=== PATIENT | female | born 1945 | race Caucasian/White ===

== ENCOUNTER 2019-11-19 13:47 | Outpatient (CLI) | payer MEDICARE, OTHER, SELFPAY ==
--- NOTE | 2019-11-21 11:45 | MR_ITS ---
WS: [id number] MRI CERVICAL SPINE HISTORY: Weakness. COMPARISON: None available. Normal cervical alignment with no compression fracture or significant disc space narrowing. Signal within the cervical cord is normal. Visualized posterior fossa is unremarkable. Craniocervical junction, C1 and C2 relationship, odontoid process and soft tissues are normal. C2-C3: Normal. C3-C4: Shallow central disc protrusion. No significant stenosis. C4-C5: Mild osteophytic ridging with a very shallow central disc protrusion. No stenosis. C5-C6: Very tiny central disc protrusion with no stenosis. C6-C7: Small central disc protrusion with no stenosis. C7-T1: Normal. Paraspinal soft tissue are normal.
--- NOTE | 2019-11-21 12:15 | MR_ITS ---
WS: [id number] MRI BRAIN WITHOUT CONTRAST HISTORY: [employer], weakness. COMPARISON: CT head 06/05/2018 TECHNIQUE: Diffusion imaging, multiplanar T1, T2 and FLAIR imaging obtained. No evidence for acute infarct or hemorrhage. Kay-white matter differentiation is normal. No significant atrophy. There are moderate amount of subcortical and periventricular white matter sig nal abnormalities. These are scattered foci of less than 1 cm and probably related to chronic microva scular ischemic disease. No prior large territory infarct. Ventricles and extra-axial spaces are normal. No inferior displacement of cerebellar tonsils. The sella turcica and pituitary gland are unremarkabl e. Posterior fossa is also unremarkable. Dural venous sinuses and [place] of [place] demonstrate no abnormality on this unenhanced studies. Paranasal sinuses: Clear. Mastoid air cells: Normal. Calvarium and scalp: Intact.
== END 2019-11-19 13:48 | disposition home or self-care (01) ==
LOC: RADSHAW 16:49
PROVIDERS: Family Provider Family Medicine; PCP Family Medicine; Referring Provider Family Medicine; Visit Provider Nurse Practitioner
DX: G72.41 Inclusion body myositis [IBM] (principal); R53.1 Weakness; R29.90 Unspecified symptoms and signs involving the nervous system
CPT/HCPCS: 99205; 99999

== ENCOUNTER 2019-11-21 12:56 | Outpatient (CLI) | payer MEDICARE, OTHER, SELFPAY ==
--- NOTE | 2019-11-21 | MR_ITS ---
WS: [id number] MRI CERVICAL SPINE HISTORY: Weakness. COMPARISON: None available. Normal cervical alignment with no compression fracture or significant disc space narrowing. Signal within the cervical cord is normal. Visualized posterior fossa is unremarkable. Craniocervical junction, C1 and C2 relationship, odontoid process and soft tissues are normal. C2-C3: Normal. C3-C4: Shallow central disc protrusion. No significant stenosis. C4-C5: Mild osteophytic ridging with a very shallow central disc protrusion. No stenosis. C5-C6: Very tiny central disc protrusion with no stenosis. C6-C7: Small central disc protrusion with no stenosis. C7-T1: Normal. Paraspinal soft tissue are normal. MR/MR cervical spin wo con* [id number] IMPRESSION: 1. No significant central or foraminal stenosis. 2. No cord atrophy or edema. 3. Very small central disc protrusions from C3-4 to C6-7 without cord contact.
--- NOTE | 2019-11-22 09:15 | MR_ITS ---
NOTE: Report was unsigned for reason: Order was edited. Original Signature date and time was: 11/22/19 0917 WS: [id number] MRI BRAIN WITHOUT CONTRAST HISTORY: [employer], weakness. COMPARISON: CT head 06/05/2018 TECHNIQUE: Diffusion imaging, multiplanar T1, T2 and FLAIR imaging obtained. No evidence for acute infarct or hemorrhage. Kay-white matter differentiation is normal. No significant atrophy. There are moderate amount of subcortical and periventricular white matter signal abnormalities. These are scattered foci of less than 1 cm and probably related to chronic microvascular ischemic disease. No prior large territory infarct. Ventricles and extra-axial spaces are normal. No inferior displacement of cerebellar tonsils. The sella turcica and pituitary gland are unremarkable. Posterior fossa is also unremarkable. Dural venous sinuses and [place] demonstrate no abnormality on this unenhanced studies. Paranasal sinuses: Clear. Mastoid air cells: Normal. Calvarium and scalp: Intact. [facility] MR/MR head wo con* [id number] IMPRESSION: 1. No acute infarct or mass. 2. Moderate chronic microvascular ischemic changes. No infarct or significant atrophy.
== END 2019-11-21 12:57 | disposition home or self-care (01) ==
LOC: RADSHAW 12:58
PROVIDERS: Family Provider Family Medicine; PCP Family Medicine; Visit Provider Nurse Practitioner
DX: G72.41 Inclusion body myositis [IBM] (principal); R53.1 Weakness; M50.223 Other cervical disc displacement at C6-C7 level
CPT/HCPCS: 70551; 72141

== ENCOUNTER 2019-11-26 09:41 | Outpatient (CLI) | payer MEDICARE, OTHER, SELFPAY ==
[2019-11-26 11:55] VITALS: BP 124/72; PULSE 78; TEMP 37.2
[2019-11-26 14:49] LABS: Alanine Aminotransferase 23 U/L (0-33); Albumin Level 3.9 g/dL (3.5-5.2); Alkaline Phosphatase 82 IU/L (35-105); Anion Gap 15.1 (5-19); Blood Urea Nitrogen 25 mg/dL (8-23); Calcium 9.4 mg/dL (8.5-10.5); Carbon Dioxide 24 mmol/L (22-29); Chloride 107 mmol/L (98-107); Creatine Phosphokinase 173 U/L (26-192); Glucose 101 mg/dL (65-115); Osmolality Calculated 291 mOsm/kg (285-295); Potassium 4.1 mmol/L (3.5-5.1); Sodium 142 mmol/L (136-145); Thyroid Stimulating Hormone 1.65 uIU/mL (0.27-4.20); Total Bilirubin 0.3 mg/dL (0.15-1.2); Total Protein 6.9 g/dL (6.6-8.7); Vitamin B12 347 pg/mL (232-1245)
[2019-11-26 19:09] LABS: Aspartate Amino Transferase 28 U/L (0-32)
== END 2019-11-26 09:42 | disposition home or self-care (01) ==
LOC: NSACUTE 09:43
PROVIDERS: Nurse Practitioner; Family Provider Family Medicine; PCP Family Medicine; Visit Provider Specialist
DX: G72.41 Inclusion body myositis [IBM] (principal)
CPT/HCPCS: 80053; 82550; 82607; 84443; 96365; J2930; J7050

== ENCOUNTER 2019-11-27 09:41 | Outpatient (CLI) | payer MEDICARE, OTHER, SELFPAY | END 2019-11-27 09:42 | disposition home or self-care (01) | LOC: NSACUTE 09:44 | PROVIDERS: Family Provider Family Medicine; PCP Family Medicine; Visit Provider Specialist | DX: G72.41 Inclusion body myositis [IBM] (principal) | CPT/HCPCS: 96365; J2930; J7050 ==

== ENCOUNTER 2019-11-28 09:58 | Outpatient (CLI) | payer MEDICARE, OTHER, SELFPAY ==
[2019-11-29 08:16] LABS: PROTEIN, TOTAL 6.2 g/dL (6.1-8.1)
[2019-11-29 11:57] LABS: ALBUMIN 3.9 g/dL (3.8-4.8); ALPHA 1 GLOBULIN 0.2 g/dL (0.2-0.3); ALPHA 2 GLOBULIN 0.6 g/dL (0.5-0.9); BETA 1 GLOBULIN 0.4 g/dL (0.4-0.6); BETA 2 GLOBULIN 0.3 g/dL (0.2-0.5); GAMMA GLOBULIN 0.9 g/dL (0.8-1.7)
[2019-11-29 14:17] LABS: Creatinine, Random Urine 147 mg/dL (20-275); Protein, Total, Random 38 mg/dL (5-24); Protein/Creatinine Ratio 0.259 (0.021-0.161); Protein/Creatinine Ratio 259 mg/g creat (21-161)
[2019-11-30 08:46] LABS: Albumin,Urine Random 100 %; Alpha-1-Globulins Urine Random 0 %; Alpha-2-Globulins Urine Random 0 %; Beta-Globulin,Urine Random 0 %; Gamma Globulin,Urine Random 0 %
== END 2019-11-28 09:59 | disposition home or self-care (01) ==
LOC: NSACUTE 10:00
PROVIDERS: Nurse Practitioner; Family Provider Family Medicine; PCP Family Medicine; Visit Provider Specialist
DX: G72.41 Inclusion body myositis [IBM] (principal)
CPT/HCPCS: 84155; 84165; 96365; J2930; J7050

== ENCOUNTER → 2019-12-13 09:59 | Outpatient (BNVA) | payer MEDICARE, OTHER, SELFPAY | PROVIDERS: Family Provider Family Medicine; PCP Family Medicine; Visit Provider Nurse Practitioner | DX: G72.41 Inclusion body myositis [IBM] (principal) | CPT/HCPCS: 99213; 99999 ==

== ENCOUNTER 2019-12-13 12:06 | Outpatient (CLI) | payer MEDICARE, OTHER, SELFPAY ==
[2019-12-13 12:37] LABS: Basophils % 0.3 %; Eosinophils # 0.1 10^3/uL (0.0-0.8); Hematocrit 43.1 % (37.0-47.0); Hemoglobin 13.9 g/dL (11.5-15.3); Lymphocytes # 0.9 10^3/uL (0.8-4.8); Lymphocytes % 10.3 %; Mean Corpuscular HGB Conc 32.3 g/dL (30.0-36.0); Mean Corpuscular Hemoglobin 29.3 pg (28.0-34.0); Mean Corpuscular Volume 90.7 fL (81-99); Mean Platelet Volume 10.3 fL (7.4-10.4); Monocytes # 0.4 10^3/uL (0.2-0.9); Neutrophils # 7.1 10^3/uL (1.8-7.7); Neutrophils % 82.7 %; Nucleated Red Blood Cells % 0 %; Platelet Count 147 10^3/cmm (130-400); Red Blood Count 4.75 10^6/uL (4.1-5.3); Red Cell Distribution Width 13.2 % (12.1-15.1); White Blood Count 8.6 10^3/uL (4.0-10.0)
[2019-12-13 13:01] LABS: Alanine Aminotransferase 19 U/L (0-33); Albumin Level 4.4 g/dL (3.5-5.2); Alkaline Phosphatase 82 IU/L (35-105); Anion Gap 14.5 (5-19); Aspartate Amino Transferase 19 U/L (0-32); Blood Urea Nitrogen 19 mg/dL (8-23); Calcium 9.3 mg/dL (8.5-10.5); Carbon Dioxide 27 mmol/L (22-29); Chloride 102 mmol/L (98-107); Globulin 1.9 g/dL (1.3-4.6); Glucose 100 mg/dL (65-115); Osmolality Calculated 285 mOsm/kg (285-295); Potassium 4.5 mmol/L (3.5-5.1); Sodium 139 mmol/L (136-145); Total Bilirubin 0.4 mg/dL (0.15-1.2); Total Protein 6.3 g/dL (6.6-8.7)
== END 2019-12-13 12:07 | disposition home or self-care (01) ==
LOC: LAB 12:12
PROVIDERS: PCP Family Medicine; Visit Provider Nurse Practitioner
DX: G72.41 Inclusion body myositis [IBM] (principal)
CPT/HCPCS: 36415; 80053; 85025

== ENCOUNTER 2020-01-07 08:37 | Outpatient (CLI) | payer MEDICARE, OTHER, SELFPAY ==
[2020-01-07 10:59] VITALS: BP 130/72; PULSE 70; TEMP 36.7
== END 2020-01-07 08:38 | disposition home or self-care (01) ==
LOC: NSACUTE 08:39
PROVIDERS: PCP Family Medicine; Visit Provider Specialist
DX: G72.41 Inclusion body myositis [IBM] (principal)
CPT/HCPCS: 96365; J2930; J7050

== ENCOUNTER 2020-02-06 08:46 | Outpatient (CLI) | payer MEDICARE, OTHER, SELFPAY | END 2020-02-06 08:47 | disposition home or self-care (01) | LOC: NSACUTE 08:52 | PROVIDERS: PCP Family Medicine; Visit Provider Specialist | DX: G72.41 Inclusion body myositis [IBM] (principal) | CPT/HCPCS: 96365; J2930; J7050 ==

== ENCOUNTER → 2020-03-03 11:35 | Outpatient (BNVA) | payer MEDICARE, OTHER, SELFPAY | PROVIDERS: PCP Family Medicine; Visit Provider Family Medicine | DX: E78.00 Pure hypercholesterolemia, unspecified (principal) | CPT/HCPCS: 80061 ==

== ENCOUNTER 2020-03-05 08:50 | Outpatient (CLI) | payer MEDICARE, OTHER, SELFPAY | END 2020-03-05 08:51 | disposition home or self-care (01) | LOC: NSACUTE 08:52 | PROVIDERS: PCP Family Medicine; Visit Provider Specialist | DX: G72.41 Inclusion body myositis [IBM] (principal) | CPT/HCPCS: 96365; J2930; J7050 ==

== ENCOUNTER 2020-03-14 12:10 | Outpatient (CLI) | payer MEDICARE, OTHER, SELFPAY ==
--- NOTE | 2020-03-14 12:20 | MM_ITS ---
WS: [id number] SCREENING DIGITAL MAMMOGRAM WITH CAD HISTORY: SCREEN COMPARISON: 01/10/2019 and 06/29/2017 Bilateral CC and MLO views submitted. Computer aided detection analyzed. Breast composition: There are scattered areas of fibroglandular density. No suspicious masses, microc alcifications or architectural distortion. MM/[place] [id number] IMPRESSION: BI-RADS: 1-Negative FOLLOW UP: 1 Year Follow-up
== END 2020-03-14 12:11 | disposition home or self-care (01) ==
LOC: RADSHAW 12:12
PROVIDERS: PCP Family Medicine; Visit Provider Family Medicine
DX: Z12.31 Encounter for screening mammogram for malignant neoplasm of breast (principal)
CPT/HCPCS: 77067

== ENCOUNTER → 2020-03-24 08:26 | Outpatient (BNVA) | payer MEDICARE, OTHER, SELFPAY | PROVIDERS: PCP Family Medicine; Visit Provider Nurse Practitioner | DX: G72.41 Inclusion body myositis [IBM] (principal) | CPT/HCPCS: 99214 ==

== ENCOUNTER 2020-03-24 10:14 | Outpatient (CLI) | payer MEDICARE, OTHER, SELFPAY ==
--- NOTE | 2020-03-24 10:36 | XRR_ITS ---
PROCEDURE INFORMATION: Exam: XR Left Hip with Pelvis when Performed Exam date and time: 03/24/2020 10:49 AM Age: 74 years old Clinical indication: Hip pain; Left hip; Additional info: Hip painx 6 months TECHNIQUE: Imaging protocol: XR Left hip with pelvis when performed. Views: 2 or 3 views. COMPARISON: CR Hips Jacob 5v wwo Pelvis* [id number] 08/01/2018 3:15 PM FINDINGS: Bones/joints: Moderate degenerative changes within the hip including joint space narrowing and osteophyte formation. No fracture. The trabecular stress markings normal. Degenerative changes are present within the visualized portions of the caudal aspect of the lumbar spine. Prior trauma to the inferior pubic ramus on the left Soft tissues: Unremarkable. XR/XR hip LT 2-3V wo/w pel* [id number] IMPRESSION: Moderate degenerative changes within the hip.
== END 2020-03-24 10:15 | disposition home or self-care (01) ==
LOC: RAD 10:18
PROVIDERS: Family Provider Family Medicine; PCP Family Medicine; Visit Provider Nurse Practitioner
DX: M25.552 Pain in left hip (principal)
CPT/HCPCS: 73502

== ENCOUNTER → 2020-04-30 11:26 | Outpatient (BNVA) | payer MEDICARE, OTHER, SELFPAY | PROVIDERS: Family Provider Family Medicine; PCP Family Medicine; Referring Provider Nurse Practitioner; Visit Provider Specialist | DX: M16.11 Unilateral primary osteoarthritis, right hip (principal) | CPT/HCPCS: 73502 ==

== ENCOUNTER 2020-05-05 06:00 | Outpatient (RCR) | payer MEDICARE, OTHER, SELFPAY | END 2020-05-24 23:59 | disposition home or self-care (01) | LOC: SPT 06:00 | PROVIDERS: Family Provider Family Medicine; PCP Family Medicine; Referring Provider Specialist; Visit Provider Specialist | DX: M54.5 Low back pain (principal); M16.0 Bilateral primary osteoarthritis of hip | CPT/HCPCS: 97110; 97161 ==

== ENCOUNTER 2020-05-06 08:34 | Outpatient (CLI) | payer MEDICARE, OTHER, SELFPAY ==
--- NOTE | 2020-05-06 09:00 | CT_ITS ---
WS: [id number] NONCONTR[address] LEFT HIP WITH CORONAL AND SAGITTAL REFORMATTED IMAGES. TECHNIQUE: Noncontrast CT left hip with coronal and sagittal reformatted images. CLINICAL INFORMATION: pain COMPARISON: April 30, 2020 DLP: 647.[address] scans at [facility] use at least one of these dose optimization techniques: automat ed exposure control; mA and/or kV adjustment per patient size (includes targeted exams where dose is matched to clinical indication); or iterative reconstruction. FINDINGS: Correlation with prior radiograph. Chronic healed fracture involving the inferior left pubic ramus wi th callus formation. No evidence of pathologic lesion. Moderate degenerative arthritis left hip with joint space narrowing. No left femoral head or neck fractures. Proximal femur appears normal. Normal acetabulum. Postoperative changes in the pelvis. CT/CT hip LT wo con* [id number] IMPRESSION: 1. Left inferior pubic ramus fracture has a chronic appearance with callus for mation. No lytic or blastic lesions. 2. Moderate degenerative arthritis left hip with joint space narrowing. Hypert rophic spurring involving the femoral head and acetabulum. 3. No other significant findings.
== END 2020-05-06 08:35 | disposition home or self-care (01) ==
LOC: RADWPI 08:41
PROVIDERS: Family Provider Family Medicine; PCP Family Medicine; Visit Provider Specialist
DX: S32.592A Other specified fracture of left pubis, initial encounter for closed fracture (principal); X58.XXXA Exposure to other specified factors, initial encounter; M16.12 Unilateral primary osteoarthritis, left hip
CPT/HCPCS: 73700

== ENCOUNTER → 2020-05-09 10:44 | Outpatient (BNVA) | payer MEDICARE, OTHER, SELFPAY | PROVIDERS: Family Provider Family Medicine; PCP Family Medicine; Referring Provider Specialist; Visit Provider Anesthesiology Pain Medicine | DX: M16.0 Bilateral primary osteoarthritis of hip (principal); M47.816 Spondylosis without myelopathy or radiculopathy, lumbar region; M51.36 Other intervertebral disc degeneration, lumbar region; G72.41 Inclusion body myositis [IBM] | CPT/HCPCS: 99205 ==

== ENCOUNTER 2020-05-25 06:00 | Outpatient (RCR) | payer MEDICARE, OTHER, SELFPAY | END 2020-06-23 23:59 | disposition home or self-care (01) | LOC: SPT 06:00 | PROVIDERS: Family Provider Family Medicine; PCP Family Medicine; Referring Provider Specialist; Visit Provider Specialist | DX: M54.5 Low back pain (principal); M16.0 Bilateral primary osteoarthritis of hip | CPT/HCPCS: 97110 ==

== ENCOUNTER → 2020-06-04 16:57 | Outpatient (BNVA) | payer MEDICARE, OTHER, SELFPAY | PROVIDERS: Family Provider Family Medicine; PCP Family Medicine; Visit Provider Nurse Practitioner Family | DX: Z20.828 Contact with and (suspected) exposure to other viral communicable diseases (principal) | CPT/HCPCS: 87635 ==

== ENCOUNTER → 2020-06-06 16:22 | Outpatient (BNVA) | payer MEDICARE, OTHER, SELFPAY | PROVIDERS: Family Provider Family Medicine; PCP Family Medicine; Visit Provider Nurse Practitioner Family | DX: J11.1 Influenza due to unidentified influenza virus with other respiratory manifestations (principal); Z20.828 Contact with and (suspected) exposure to other viral communicable diseases | CPT/HCPCS: 87400 ==

== ENCOUNTER 2020-06-24 13:02 | Outpatient (CLI) | payer MEDICARE, OTHER, SELFPAY | END 2020-06-24 13:03 | LOC: OPS 03-19 10:46 | PROVIDERS: PCP Family Medicine; Visit Provider Family Medicine | DX: J31.0 Chronic rhinitis (principal) | CPT/HCPCS: J1100 ==

== ENCOUNTER → 2020-09-16 12:22 | Outpatient (BNVA) | payer MEDICARE, OTHER, SELFPAY | PROVIDERS: Family Provider Family Medicine; PCP Family Medicine; Visit Provider Family Medicine | DX: E78.00 Pure hypercholesterolemia, unspecified (principal); E16.2 Hypoglycemia, unspecified; R73.9 Hyperglycemia, unspecified | CPT/HCPCS: 80053; 80061; 83036; 85025 ==

== ENCOUNTER → 2020-10-15 11:15 | Outpatient (BNVA) | payer MEDICARE, OTHER, SELFPAY | PROVIDERS: Family Provider Family Medicine; PCP Family Medicine; Visit Provider Nurse Practitioner | DX: G72.41 Inclusion body myositis [IBM] (principal) | CPT/HCPCS: 99213 ==

== ENCOUNTER 2020-10-24 06:00 | Outpatient (RCR) | payer MEDICARE, OTHER, SELFPAY | END 2020-11-21 23:59 | disposition home or self-care (01) | LOC: SOT 06:00 | PROVIDERS: Family Provider Family Medicine; PCP Family Medicine; Referring Provider Nurse Practitioner; Visit Provider Nurse Practitioner | DX: G72.41 Inclusion body myositis [IBM] (principal) | CPT/HCPCS: 97110; 97166; 97530 ==

== ENCOUNTER → 2021-04-02 11:43 | Outpatient (BNVA) | payer MEDICARE, OTHER, SELFPAY | PROVIDERS: Family Provider Family Medicine; PCP Family Medicine; Visit Provider Family Medicine | DX: E78.00 Pure hypercholesterolemia, unspecified (principal); B37.0 Candidal stomatitis; J30.9 Allergic rhinitis, unspecified | CPT/HCPCS: 80053; 80061; 85025 ==

== ENCOUNTER 2021-05-15 09:15 | Outpatient (CLI) | payer MEDICARE, OTHER, SELFPAY ==
--- NOTE | 2021-05-15 09:21 | MM_ITS ---
WS: [id number] BILATERAL DIGITAL SCREENING MAMMOGRAPHY WITH CAD CLINICAL INFORMATION: SCREENING HISTORY: Screening mammogram. No current complaints. COMPARISON: May 15, 2021 TECHNIQUE: Bilateral CC and MLO views. FINDINGS: Scattered fibroglandular densities bilaterally. Vascular calcification. No suspicious focal mass, asy mmetry, calcifications, or architectural distortion. No evidence of malignancy. MM/[place] [id number] IMPRESSION: BI-RADS: 2-Benign FOLLOW UP: 1 Year Follow-up Recommend return to annual screening mammography.
== END 2021-05-15 09:16 | disposition home or self-care (01) ==
LOC: RADSHAW 09:18
PROVIDERS: PCP Family Medicine; Visit Provider Family Medicine
DX: Z12.31 Encounter for screening mammogram for malignant neoplasm of breast (principal)
CPT/HCPCS: 77067

== ENCOUNTER → 2021-12-31 11:59 | Outpatient (BNVA) | payer MEDICARE, OTHER, SELFPAY | PROVIDERS: PCP Family Medicine; Visit Provider Family Medicine | DX: E16.2 Hypoglycemia, unspecified (principal); E78.00 Pure hypercholesterolemia, unspecified; R13.14 Dysphagia, pharyngoesophageal phase; Z00.00 Encounter for general adult medical examination without abnormal findings; K22.0 Achalasia of cardia | CPT/HCPCS: 80053; 80061; 84443; 85025 ==

== ENCOUNTER → 2022-01-06 09:47 | Outpatient (BNVA) | payer MEDICARE, OTHER, SELFPAY | PROVIDERS: PCP Family Medicine; Visit Provider Surgery | DX: R13.14 Dysphagia, pharyngoesophageal phase (principal); K22.0 Achalasia of cardia | CPT/HCPCS: 99203 ==

== ENCOUNTER 2022-03-10 07:37 | Day surgery (SDC) | payer MEDICARE, OTHER, SELFPAY ==
[2022-03-08 13:06] VITALS: BMI 19.6
[2022-03-10 08:19] VITALS: PULSE 79; RESP 16; O2SAT 95
[2022-03-10] MEDS: ipratropium-albuterol 3 mL Neb INHALATION (08:21)
[2022-03-10] MEDS: sodium chloride 0.9% 1,000 ML 30 ML IV (08:22)
[2022-03-10 08:23] VITALS: BP 108/67; PULSE 71; RESP 16; TEMP 36.4; O2SAT 94
[2022-03-10 08:24] VITALS: PULSE 80
--- NOTE | 2022-03-10 09:06 | PM.HP ---
Providers/Chief Complaint Primary Care Provider: Rebecca Huertas MD Chief Complaint: dysphagia History of Present Illness Iris Pickering is a 76 year old female with achalasia here for EGD with possible dilation Review of Systems General: Reports: 10 or more systems reviewed and unremarkable except in HPI and below Medications/Allergies Home Medications Medication Instructions Recorded Confirmed Last Taken Type calcium-mag 1 tab PO DAILY 07/19/19 03/10/22 03/09/22 History cv-T4-ugnu-boron-silica 200 mg-80 mg-80 unit-0.8 mg tablet food supplemt, lactose-reduced each PO 07/19/19 01/06/22 Unknown History (Boost Calorie Smart) prenat.vits,eleno,afv-nhpz-aulan 1 tab PO ONCE 07/19/19 03/10/22 03/09/22 History cholecalciferol (vitamin D3) 25 25 mcg PO DAILY 05/09/20 03/10/22 03/09/22 History mcg (1,000 unit) capsule fluticasone propionate 50 2 spray intranasal DAILY 6 months 05/18/21 03/10/22 03/09/22 Rx mcg/actuation nasal #16 grams spray,suspension mirtazapine 15 mg tablet See Rx Instructions .Route 06/14/21 03/10/22 03/09/22 Rx .COMPLEX #60 tabs levothyroxine 75 mcg tablet See Rx Instructions .Route 09/01/21 03/10/22 03/09/22 Rx (Euthyrox) .COMPLEX #90 tabs famotidine 40 mg tablet 40 mg PO BID 90 days #180 tabs 12/11/21 03/10/22 03/09/22 Rx vitamins A and D3 in cod liver oil 1 cap PO DAILY 01/06/22 03/10/22 03/09/22 History 1,250 unit-135 unit capsule (cod liver oil) atorvastatin 10 mg tablet 10 mg PO DAILY 03/08/22 03/10/22 03/09/22 History nystatin 100,000 unit/mL oral 4 ml PO QID PRN thrush 03/08/22 03/10/22 03/09/22 History suspension Allergies Allergy/AdvReac Type Severity Reaction Status Date / Time cephalexin Allergy yeast Verified 03/10/22 08:17 infection pseudoephedrine Allergy increase Verified 03/10/22 08:17 hypertension PFSH Acute PFSH: Medical History Anxiety Cataract Enrolled in chronic care management Flu vaccine need GERD (gastroesophageal reflux disease) Hip pain Hip pain Hypercholesteremia 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 Opioid contract exists Pharyngoesophageal dysphagia Surgical History H/O abdominal hysterectomy H/O bladder repair surgery History of cataract surgery History of tonsillectomy History of total hysterectomy Family History Other Cancer Diabetes Social History Smoking and tobacco status: never smoked History of recent travel: No Vitals/I&O/Wt Last Vital Signs Temp 97.6 F 03/10/22 08:23 Pulse 80 03/10/22 08:24 Resp 16 03/10/22 08:23 BP 108/67 03/10/22 08:23 Pulse Ox 94 03/10/22 08:23 O2 Del Method 03/10/22 08:23 Weight last 48 hrs Weight 111 lb A&P Assessment and plan (1) Achalasia of esophagus: Status: Acute Plan EGD with possible balloon dilation The risks and benefits of the procedure, including bleeding, infection, intestinal perforation requiring surgery, missed lesion, or explained to the patient. He is understanding of the risks and wishes to proceed. 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
--- NOTE | 2022-03-10 09:26 | ANES.PREANE2 ---
Pre-Anesthetic Assessment Height/Weight: Height 1.6 m Weight 50.349 kg Temp Pulse Resp BP Pulse Ox O2 Del Method 97.6 F 80 16 108/67 94 03/10/22 08:23 03/10/22 08:24 03/10/22 08:23 03/10/22 08:23 03/10/22 08:23 03/10/22 08:23 Preop Diagnosis: dysphagia Operation Date: 03/10/22 09:45 Proposed Procedures p EGD Dilation W/ Balloon 91853,R13.14(Not Applicable) - Bob Schaffer DO Familial anesthetic complications: None Was Beta Jocelyn taken within 24 hours: N/A Was Clonidine taken within 24 hours: N/A Last intake: Intake Last Liquid Date 03/09/22 Last Liquid Time 23:00 Last Solid Date 03/09/22 Last Solid Time 23:00 Social No alcohol and No tobacco Exam alert, oriented x 3 and regular rate & rhythm Airway Submandibular: within normal limits Cervical ROM: within normal limits Mallampati: Class II History/ROS No significant history except as noted Pulmonary None reported CV/HEM None reported None reported Hepatic None reported GI Gastroesophageal Reflux Disease dysphagia Metabolic None reported Musc/skel Osteoarthritis/DJD Neuropsych Anxiety Anesthetic Plan ASA status: 3 Anesthesia: Anesthesia Evaluation and MAC Risk of > 500 ml blood loss (7ml/kg in children): No Medications/Allergies Home Medications Medication Instructions Recorded Confirmed Last Taken Type calcium-mag 1 tab PO DAILY 07/19/19 03/10/22 03/09/22 History hw-E7-zksv-boron-silica 200 mg-80 mg-80 unit-0.8 mg tablet food supplemt, lactose-reduced each PO 07/19/19 01/06/22 Unknown History (Boost Calorie Smart) prenat.vits,eleno,ejj-navf-obepb 1 tab PO ONCE 07/19/19 03/10/22 03/09/22 History cholecalciferol (vitamin D3) 25 25 mcg PO DAILY 05/09/20 03/10/22 03/09/22 History mcg (1,000 unit) capsule fluticasone propionate 50 2 spray intranasal DAILY 6 months 05/18/21 03/10/22 03/09/22 Rx mcg/actuation nasal #16 grams spray,suspension mirtazapine 15 mg tablet See Rx Instructions .Route 06/14/21 03/10/2203/09/22 Rx .COMPLEX #60 tabs levothyroxine 75 mcg tablet See Rx Instructions .Route 09/01/21 03/10/22 03/09/22 Rx (Euthyrox) .COMPLEX #90 tabs famotidine 40 mg tablet 40 mg PO BID 90 days #180 tabs 12/11/21 03/10/22 03/09/22 Rx vitamins A and D3 in cod liver oil 1 cap PO DAILY 01/06/22 03/10/22 03/09/22 History 1,250 unit-135 unit capsule (cod liver oil) atorvastatin 10 mg tablet 10 mg PO DAILY 03/08/22 03/10/22 03/09/22 History nystatin 100,000 unit/mL oral 4 ml PO QID PRN thrush 03/08/22 03/10/22 03/09/22 History suspension Allergies Allergy/AdvReac Type Severity Reaction Status Date / Time cephalexin Allergy yeast Verified 03/10/22 08:17 infection pseudoephedrine Allergy increase Verified 03/10/22 08:17 hypertension Current Medications Generic Name Dose Route Start Last Admin Trade Name Freq PRN Reason Stop Dose Admin Sodium Chloride 1,000 mls @ 30 mls/hr 03/10/22 08:00 03/10/22 08:22 Sodium Chloride 0.9% IV 03/11/22 07:59 30 mls/hr .Q24H HANNAH Administration PFSH Anesthesia Medical History Anxiety Cataract Enrolled in chronic care management Flu vaccine need GERD (gastroesophageal reflux disease) Hip pain Hip pain Hypercholesteremia 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
[2022-03-10 09:45] VITALS: BP 114/66; PULSE 69; RESP 16; TEMP 36.4; O2SAT 98
[2022-03-10 09:50] VITALS: BP 119/70; PULSE 73; RESP 18; O2SAT 100
--- NOTE | 2022-03-10 09:53 | PC.NURSE ---
dentures returned to patient, has patients glasses
[2022-03-10 10:00] VITALS: BP 141/79; PULSE 69; RESP 18; O2SAT 98
--- NOTE | 2022-03-10 12:44 | ANE.PACU2 ---
Inpatient post-anesthesia follow up: Airway intact: Yes Vital signs: Temperature 97.6 F Pulse Rate 69 Respiratory Rate 18 Blood Pressure 141/79 Pulse Oximetry 98 Oxygen Delivery Me thod Room Air Oxygen Flow Rate 3 Fraction of Inspir ed Oxygen Hydration adequate: Yes Nausea and vomiting: No Pain level: 2 Mental status: Baseline
== END 2022-03-10 10:25 | disposition home or self-care (01) ==
PROVIDERS: PCP Family Medicine; Visit Provider Surgery
DX: R13.10 Dysphagia, unspecified (principal); F41.9 Anxiety disorder, unspecified; K21.9 Gastro-esophageal reflux disease without esophagitis; K22.2 Esophageal obstruction; E78.00 Pure hypercholesterolemia, unspecified
CPT/HCPCS: 43249; 94640; J2704; J7030

== ENCOUNTER 2022-03-31 06:00 | Outpatient (RCR) | payer MEDICARE, OTHER, SELFPAY | END 2022-04-23 23:59 | disposition home or self-care (01) | LOC: SOT 06:00 | PROVIDERS: PCP Family Medicine; Referring Provider Family Medicine; Visit Provider Family Medicine | DX: G72.41 Inclusion body myositis [IBM] (principal); G95.9 Disease of spinal cord, unspecified; G72.9 Myopathy, unspecified; M47.816 Spondylosis without myelopathy or radiculopathy, lumbar region | CPT/HCPCS: 97018; 97110; 97140; 97166 ==

== ENCOUNTER 2022-04-12 06:00 | Outpatient (RCR) | payer MEDICARE, OTHER, SELFPAY | END 2022-04-23 23:59 | disposition home or self-care (01) | LOC: SPT 06:00 | PROVIDERS: PCP Family Medicine; Visit Provider Family Medicine | DX: G72.41 Inclusion body myositis [IBM] (principal); G95.9 Disease of spinal cord, unspecified; G72.9 Myopathy, unspecified; M47.816 Spondylosis without myelopathy or radiculopathy, lumbar region | CPT/HCPCS: 97110; 97112; 97162 ==

== ENCOUNTER 2022-04-24 06:00 | Outpatient (RCR) | payer MEDICARE, OTHER, SELFPAY | END 2022-05-24 23:59 | disposition home or self-care (01) | LOC: SPT 06:00 | PROVIDERS: PCP Family Medicine; Visit Provider Family Medicine | DX: G72.41 Inclusion body myositis [IBM] (principal); G95.9 Disease of spinal cord, unspecified; G72.9 Myopathy, unspecified; M47.816 Spondylosis without myelopathy or radiculopathy, lumbar region | CPT/HCPCS: 97110; 97112 ==

== ENCOUNTER 2022-04-24 06:00 | Outpatient (RCR) | payer MEDICARE, OTHER, SELFPAY | END 2022-05-24 23:59 | disposition home or self-care (01) | LOC: SOT 06:00 | PROVIDERS: PCP Family Medicine; Visit Provider Family Medicine | DX: G72.41 Inclusion body myositis [IBM] (principal) | CPT/HCPCS: 97110; 97140 ==

== ENCOUNTER 2022-06-02 10:37 | Outpatient (CLI) | payer MEDICARE, OTHER, SELFPAY ==
--- NOTE | 2022-06-02 10:45 | MM_ITS ---
WS: [id number] Bilateral screening 3D tomosynthesis digital mammogram, 06/02/2022l Clinical Data: SCREENING Comparison: 05/15/2021, 03/14/2020, 01/10/2019, 06/29/2017, 06/21/2016 05/14/2015, 05/03/2014, 0, 05/09/2009, 06/19/2007. Findings: The breast parenchymal pattern shows glandular tissue. No spiculated masses or clustered calcificatio ns are seen. There are no secondary signs of carcinoma. MM/[place] [id number] Impression: 1. Negative bilateral mammogram unchanged. 2. Recommend annual screening mammograms. BIRADS: 1-Negative FOLLOW UP: 1 Year Follow-up The CAD wrapping checker was used.
== END 2022-06-02 10:38 | disposition home or self-care (01) ==
LOC: RAD 10:37
PROVIDERS: PCP Family Medicine; Visit Provider Family Medicine
DX: Z12.31 Encounter for screening mammogram for malignant neoplasm of breast (principal)
CPT/HCPCS: 77067

== ENCOUNTER → 2022-07-13 10:04 | Outpatient (BNVA) | payer MEDICARE, OTHER, SELFPAY | PROVIDERS: PCP Family Medicine; Visit Provider Surgery | DX: K22.0 Achalasia of cardia (principal) | CPT/HCPCS: 99213 ==

== ENCOUNTER 2022-07-14 08:26 | Day surgery (SDC) | payer MEDICARE, OTHER, SELFPAY ==
[2022-07-13 12:36] VITALS: BMI 18.5
[2022-07-14 09:26] VITALS: BP 116/70; PULSE 70; RESP 18; TEMP 36.4; O2SAT 95
[2022-07-14] MEDS: sodium chloride 0.9% 1,000 ML 30 ML IV (09:30)
--- NOTE | 2022-07-14 11:32 | W.PM.OPSUD ---
Surgery/Procedure H&P Update DATE OF PROCEDURE: July 14, 2022 DATE H&P PERFORMED: 07/13/22 PREOP DIAGNOSIS: dysphagia PLANNED PROCEDURE: Operation Date: 07/14/22 10:45 Proposed Procedures p EGD Dilation W/ Balloon Dial 73673 K22.0(Not Applicable) - Bob Schaffer DO
[2022-07-14 11:55] VITALS: BP 124/65; PULSE 72; RESP 16; TEMP 36.2; O2SAT 95
[2022-07-14 12:09] VITALS: BP 130/76; RESP 18; O2SAT 97
--- NOTE | 2022-07-14 15:21 | ANE.PACU2 ---
Inpatient post-anesthesia follow up: Airway intact: Yes Vital signs: Temperature 97.2 F Pulse Rate 72 Respiratory Rate 18 Blood Pressure 130/76 Pulse Oximetry 97 Oxygen Delivery Me thod Room Air Oxygen Flow Rate Fraction of Inspir ed Oxygen Hydration adequate: Yes Nausea and vomiting: No Pain level: 2 Mental status: Baseline
== END 2022-07-14 12:26 | disposition home or self-care (01) ==
PROVIDERS: PCP Family Medicine; Visit Provider Surgery
DX: R13.10 Dysphagia, unspecified (principal); K22.2 Esophageal obstruction; K21.9 Gastro-esophageal reflux disease without esophagitis
CPT/HCPCS: 43249; J7030

== ENCOUNTER → 2022-08-04 11:19 | Outpatient (BNVA) | payer MEDICARE, OTHER, SELFPAY | PROVIDERS: PCP Family Medicine; Visit Provider Family Medicine | DX: R73.9 Hyperglycemia, unspecified (principal); E78.00 Pure hypercholesterolemia, unspecified; K22.0 Achalasia of cardia; E16.2 Hypoglycemia, unspecified | CPT/HCPCS: 80053; 80061; 85025 ==

== ENCOUNTER 2022-10-01 10:43 | Outpatient (CLI) | payer MEDICARE, OTHER, SELFPAY ==
--- NOTE | 2022-10-01 11:00 | CT_ITS ---
WS: [id number] CT HEAD TECHNIQUE: Noncontrast CT of the head obtained from the skullbase to the vertex. CLINICAL INFORMATION: vertigo w near syncope COMPARISON: MRI November 21, 2019 DLP: 989.[address] scans at [facility] use at least one of these dose optimization techniques: automated e xposure control; mA and/or kV adjustment per patient size (includes targeted exams where dose is matc hed to clinical indication); or iterative reconstruction. FINDINGS: No evidence of intracranial hemorrhage or mass effect. Ventricular system and basal cisterns are ward nt. Moderate small vessel changes with moderate parenchymal volume loss. Vascular calcification. No e xtra-axial fluid collections. No evidence of mass or mass effect. Paranasal sinuses and mastoid air cells are well aerated. .Normal visualized soft tissues. CT/CT head wo con* [id number] IMPRESSION: 1. No evidence of intracranial hemorrhage or mass effect. 2. Moderate small vessel changes. Moderate parenchymal volume loss. 3. No acute intracranial findings.
== END 2022-10-01 10:44 | disposition home or self-care (01) ==
LOC: RAD 10:47
PROVIDERS: PCP Family Medicine; Visit Provider Family Medicine
DX: H81.4 Vertigo of central origin (principal)
CPT/HCPCS: 70450

== ENCOUNTER → 2023-03-18 10:18 | Outpatient (BNVA) | payer MEDICARE, OTHER, SELFPAY | PROVIDERS: PCP Family Medicine; Visit Provider Nurse Practitioner Family | DX: R42 Dizziness and giddiness (principal) | CPT/HCPCS: 82962 ==

== ENCOUNTER → 2023-03-22 10:46 | Outpatient (BNVA) | payer MEDICARE, OTHER, SELFPAY | PROVIDERS: PCP Family Medicine; Visit Provider Family Medicine | DX: R73.9 Hyperglycemia, unspecified (principal); K22.0 Achalasia of cardia; B37.0 Candidal stomatitis; R63.4 Abnormal weight loss; K21.9 Gastro-esophageal reflux disease without esophagitis; E16.2 Hypoglycemia, unspecified; R22.0 Localized swelling, mass and lump, head | CPT/HCPCS: 80053; 82150; 82378; 83036; 85025 ==

== ENCOUNTER → 2023-04-19 09:25 | Outpatient (BNVA) | payer MEDICARE, OTHER, SELFPAY | PROVIDERS: PCP Family Medicine; Visit Provider Otolaryngology | DX: K22.4 Dyskinesia of esophagus (principal); K21.9 Gastro-esophageal reflux disease without esophagitis; J31.2 Chronic pharyngitis | CPT/HCPCS: 31575; 99204 ==

== ENCOUNTER → 2023-04-26 08:50 | Outpatient (BNVA) | payer MEDICARE, OTHER, SELFPAY | PROVIDERS: PCP Family Medicine; Visit Provider Surgery | DX: K22.0 Achalasia of cardia (principal) | CPT/HCPCS: 99213 ==

== ENCOUNTER 2023-05-05 06:26 | Day surgery (SDC) | payer MEDICARE, OTHER, SELFPAY ==
[2023-05-03 10:30] VITALS: BMI 16.0
[2023-05-05 06:52] VITALS: BP 109/53; PULSE 66; RESP 18; TEMP 36.6; O2SAT 97
[2023-05-05] MEDS: sodium chloride 0.9% 1,000 ML 30 ML IV (06:59)
--- NOTE | 2023-05-05 08:41 | ANES.PREANE2 ---
Pre-Anesthetic Assessment Height/Weight: Height 1.63 m Weight 42.184 kg Temp Pulse Resp BP Pulse Ox O2 Del Method 97.8 F 66 18 109/53 97 Room Air 05/05/23 06:52 05/05/23 06:52 05/05/23 06:52 05/05/23 06:52 05/05/23 06:52 05/05/23 06:52 Operation Date: 05/05/23 07:45 Proposed Procedures p [id number] egd w/balloon dialation K22.0(Not Applicable) - Bob Schaffer, DO Was Beta Jocelyn taken within 24 hours: N/A Was Clonidine taken within 24 hours: N/A Last intake: Intake Last Liquid Date 05/04/23 Last Liquid Time 19:00 Last Solid Date 05/04/23 Last Solid Time 19:00 Social No tobacco Exam alert and oriented x 3 Airway Submandibular: within normal limits Cervical ROM: within normal limits Mallampati: Class I Dentition: false History/ROS No significant history except as noted Pulmonary None reported CV/HEM None reported None reported Hepatic None reported GI Gastroesophageal Reflux Disease Metabolic None reported Musc/skel Osteoarthritis/DJD (Inclusion body myositis, falls a lot/weak) Neuropsych None reported Anesthetic Plan ASA status: 3 Anesthesia: MAC Risk of > 500 ml blood loss (7ml/kg in children): No Medications/Allergies Home Medications Medication Instructions Recorded Confirmed Last Taken Type food supplemt, lactose-reduced 1 each PO DAILY 07/19/19 05/05/23 05/04/23 History (Boost Calorie Smart oral liquid) prenat.vits,eleno,wde-ywds-kvmlf 1 tab PO ONCE 07/19/19 05/05/23 05/04/23 History cholecalciferol (vitamin D3) 25 25 mcg PO DAILY 05/09/20 05/05/23 05/04/23 History mcg (1,000 unit) capsule vitamins A and D3 in cod liver oil 1 cap PO DAILY 01/06/22 05/05/23 05/04/23 History 1,250 unit-135 unit capsule (cod liver oil) levothyroxine 75 mcg tablet 75 mcg PO DAILY 07/14/22 05/05/23 05/04/23 History famotidine 40 mg tablet 40 mg PO BID 90 days #180 tabs 11/11/22 05/05/23 05/04/23 Rx atorvastatin 10 mg tablet 10 mg PO DAILY #90 tabs 12/22/22 05/05/23 05/04/23 Rx mirtazapine 15 mg tablet 15 mg PO DAILY #30 tabs 01/29/23 05/05/23 05/04/23 Rx oxybutynin chloride 5 mg tablet 5 mg PO DAILY #90 tabs 02/09/23 05/05/23 05/04/23 Rx coenzyme Q10 30 mg capsule 50 mg PO DAILY 05/05/23 05/05/23 05/04/23 History fluticasone propionate 50 2 spray intranasal DAILY 05/05/23 05/05/23 05/04/23 History mcg/actuation nasal spray,suspension lactulose 10 gram/15 mL (15 mL) 20 g PO DAILY for constipation 05/05/23 05/05/23 05/04/23 History oral solution Allergies Allergy/AdvReac Type Severity Reaction Status Date / Time cephalexin Allergy yeast Verified 05/03/23 10:29 infection pseudoephedrine Allergy increase Verified 05/03/23 10:29 hypertension Current Medications Generic Name Dose Route Start Last Admin Trade Name Freq PRN Reason Stop Dose Admin Sodium Chloride 1,000 mls @ 30 mls/hr 05/05/23 06:30 05/05/23 06:59 Sodium Chloride 0.9% IV 05/06/23 06:29 30 mls/hr .Q24H HANNAH Administration PFSH Anesthesia Medical History Anxiety Cataract Enrolled in chronic care management Flu vaccine need GERD (gastroesophageal reflux disease) Hip pain Hip pain Hypercholesteremia 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
--- NOTE | 2023-05-05 08:51 | W.PM.OPSUD ---
Surgery/Procedure H&P Update DATE OF PROCEDURE: May 05, 2023 DATE H&P PERFORMED: 04/26/23 H&P UPDATE INFORMATION: I have reviewed H&P completed within last 30 days, I have examined patient prior to procedure and No changes to prior documentation PLANNED PROCEDURE: Operation Date: 05/05/23 07:45 Proposed Procedures p [id number] egd w/balloon dialation K22.0(Not Applicable) - Bob Schaffer, DO
[2023-05-05 09:08] VITALS: BP 129/61; PULSE 69; RESP 18; TEMP 36.5; O2SAT 97
[2023-05-05 09:13] VITALS: BP 129/61; PULSE 69; RESP 18; O2SAT 97
--- NOTE | 2023-05-05 09:20 | PC.NURSE ---
patient has her dentures and all other personal belongings.
[2023-05-05 09:23] VITALS: BP 118/64; PULSE 66; RESP 18; O2SAT 99
--- NOTE | 2023-05-05 12:45 | ANE.PACU2 ---
Inpatient post-anesthesia follow up: Airway intact: Yes Vital signs: Temperature 97.7 F Pulse Rate 66 Respiratory Rate 18 Blood Pressure 118/64 Pulse Oximetry 99 Oxygen Delivery Me thod Room Air Oxygen Flow Rate Fraction of Inspir ed Oxygen Hydration adequate: Yes Nausea and vomiting: No Pain level: 2 Mental status: Baseline
== END 2023-05-05 09:45 | disposition home or self-care (01) ==
PROVIDERS: PCP Family Medicine; Visit Provider Surgery
DX: K22.0 Achalasia of cardia (principal); K22.2 Esophageal obstruction; K21.9 Gastro-esophageal reflux disease without esophagitis
CPT/HCPCS: 43249; J2704; J7030

== ENCOUNTER → 2023-05-17 14:03 | Outpatient (BNVA) | payer MEDICARE, OTHER, SELFPAY | PROVIDERS: PCP Family Medicine; Visit Provider Surgery | DX: Z09 Encounter for follow-up examination after completed treatment for conditions other than malignant neoplasm (principal); K22.0 Achalasia of cardia; R13.10 Dysphagia, unspecified | CPT/HCPCS: 99213 ==

== ENCOUNTER 2023-05-19 07:46 | Outpatient (CLI) | payer MEDICARE, OTHER, SELFPAY ==
--- NOTE | 2023-05-19 08:30 | FL_ITS ---
WS: [id number] Exam: FL barium swallow gastro [id number] Date/Time of Exam: 05/19/2023 8:54 AM Reason For Exam: Severe weight loss Fluoroscopy time: 2min [id number] minutes # of spot films: The exam was limited due to the fact that the patient readily aspirates thick liquid barium. There is a smooth moderate stricture of the esophagus at about the level of T1. No definite intrinsic esophag eal mass was demonstrated. Moderate spasm of the remaining esophagus. The esophagus is patent into th e stomach. IMPRESSION: 1. The patient readily aspirates thick liquid barium into the trachea. 2. Moderate smooth stricture of the upper esophagus at about the level of T1. 3. Moderate esophageal spasm of the remaining esophagus. 4. No hiatal hernia or reflux observed however the exam was somewhat limited. Recommendations: A modified barium swallow test is recommended for more detailed evaluation.
== END 2023-05-19 07:47 | disposition home or self-care (01) ==
LOC: RAD 07:46
PROVIDERS: PCP Family Medicine; Visit Provider Family Medicine
DX: K22.0 Achalasia of cardia (principal); R63.4 Abnormal weight loss; K22.2 Esophageal obstruction
CPT/HCPCS: 74220

== ENCOUNTER → 2023-05-24 16:29 | Outpatient (BNVA) | payer MEDICARE, OTHER, SELFPAY | PROVIDERS: PCP Family Medicine; Visit Provider Surgery | DX: Z09 Encounter for follow-up examination after completed treatment for conditions other than malignant neoplasm (principal) | CPT/HCPCS: 99212 ==

== ENCOUNTER → 2023-09-12 12:00 | Outpatient (BNVA) | payer MEDICARE, OTHER, SELFPAY | PROVIDERS: PCP Family Medicine; Visit Provider Family Medicine | DX: E78.00 Pure hypercholesterolemia, unspecified (principal) | CPT/HCPCS: 80053; 80061; 85025 ==

== ENCOUNTER → 2023-09-23 09:31 | Outpatient (BNVA) | payer MEDICARE, OTHER, SELFPAY | PROVIDERS: PCP Family Medicine; Visit Provider Otolaryngology | DX: H65.01 Acute serous otitis media, right ear (principal); H69.91 Unspecified Eustachian tube disorder, right ear; H90.11 Conductive hearing loss, unilateral, right ear, with unrestricted hearing on the contralateral side | CPT/HCPCS: 69420; 99212 ==

== ENCOUNTER 2023-12-01 11:13 | Emergency (ER) | payer MEDICARE, OTHER, SELFPAY ==
--- NOTE | 2023-12-01 11:19 | XR_ITS ---
WS: [id number] Right knee, 3 views, 12/01/2023 Clinical Data: fall Comparison: None. Findings: No fractures or dislocations are seen. There is medial joint compartment narrowing. The patella is i ntact. The soft tissues are unremarkable. XR/XR knee RT 3V* [id number] Impression: Medial joint compartment narrowing but no fractures are seen. Kellgren-Primitivo Classification: grade 1 (doubtful): doubtful joint space narr owing and possible osteophytic lipping
--- NOTE | 2023-12-01 11:19 | XR_ITS ---
WS: [id number] Left ankle, 3 views, 12/01/2023 Clinical Data: fall Comparison: None. Findings: No fractures or dislocations are seen. The ankle mortise is normal. The talus and calcaneus are unrem arkable. No soft tissue swelling over the medial or lateral malleolus is seen. XR/XR ankle LT min 3V* [id number] Impression: Negative left ankle.
--- NOTE | 2023-12-01 11:19 | XR_ITS ---
WS: [id number] Right foot, 3 views, 12/01/2023 Clinical Data: fall Comparison: Right foot, 01/23/2014 Findings: No fractures are seen. There may be a dislocation of the PIP joint of the right second toe. No bone destruction or erosion is noted. The joint spaces and soft tissues are normal. There are flexion deformities of the right second through fifth toes. There is a small Achilles spur. XR/XR foot RT min 3V* [id number] Impression: Questionable dislocation of the PIP joint of the right second toe.
--- NOTE | 2023-12-01 11:19 | XR_ITS ---
WS: [id number] Left foot, 3 views, 12/01/2023 Clinical Data: fall Comparison: None. Findings: No fractures or dislocations are seen. No bone destruction or erosion is noted. The joint spaces and soft tissues are normal. There is an Achilles spur. XR/XR foot LT min 3V* [id number] Impression: Negative left foot.
--- NOTE | 2023-12-01 11:20 | ED_ITS ---
HPI - Fall General: Chief Complaint: Fall Stated Complaint: right leg, and left foot pain Time Seen by Provider: 12/01/23 11:16 Source: patient Mode of arrival: ambulatory Limitations: no limitations History of Present Illness: 78-year-old female states she had trippe d and fell prior to arrival. States she had landed on her right knee she is complaining of right knee along with bilateral foot pain. She denies hitting her head denies any other injury she rates her pain a 2 out of 10 currently. Associated symptoms-after fall: Denies abdominal pain, chest pain, headache(s) or neck pain Review of Systems Const: Denies: fever(s), chills, body aches or change in appetite Card: Denies: chest pain Resp: Denies: dyspnea GI: Denies: abdominal pain, nausea, vomiting or diarrhea Musc: Reports: extremity pain; Denies: neck pain or back pain Skin/Breast: Denies: rash Neuro: Denies: headache(s) PFS ED PFSH: Medical History Hypothalamic hypothyroidism Cataract Enrolled in chronic care management Hip pain Flu vaccine need Hip pain Opioid contract exists GERD (gastroesophageal reflux disease) Inclusion body myositis Myopathy Myelopathy Hypercholesteremia Pharyngoesophageal dysphagia Anxiety Surgical History H/O abdominal hysterectomy H/O bladder repair surgery History of cataract surgery History of total hysterectomy History of tonsillectomy Family History Other Cancer Diabetes Social History Smoking and tobacco/nicotine status: never used tobacco/nicotine Physical Exam Const: COMMON NORMALS: no acute distress, patient oriented x3 and healthy appearing HENMT: COMMON NORMALS: normocephalic and atraumatic HEAD & SCALP: normocep halic and atraumatic Eye: COMMON NORMALS: conjunctivae normal CONJUNCTIVA: Yes conjunctivae normal Neck/C-Spine: COMMON NORMALS: full ROM and supple CERVICAL SPINE: Yes cervical ROM normal and No pain with cervical ROM Chest: COMMONS NORMALS: normal inspection of the chest Resp: COMMON NORMALS: normal respiratory effort and No use of accessory muscles Cardio: COMMON NORMALS: regular rate RATE: regular rate Extremity: COMMON NORMALS: normal to inspection and full ROM NARRATIVE EXTREMITY EXAM: Slight tenderness to right knee and bilateral feet with no obvious deformities Neuro: COMMON NORMALS: patient oriented x3, moves all extremities and no focal motor deficits Psych: COMMON NORMALS: mental status grossly normal, Normal thought process present and cooperative THOUGHT PROCESS: Normal thought process present Skin: COMMON NORMALS: no rashes or lesions noted and no wounds GENERAL SKIN EXAM: no rashes or lesions noted Course Vital Signs: Vital signs: Vital Signs Temperature 98.4 F 12/01/23 11:27 Pulse Rate 87 12/01/23 11:27 Respiratory Rate 18 12/01/23 11:27 Blood Pressure 139/71 12/01/23 11:27 Pulse Oximetry 96 12/01/23 11:27 Oxygen Delivery Me thod Room Air 12/01/23 11:27 MDM - Fall Medical Decision Making Patient presents here with some knee for hip pain from a fall x-rays here show no fractures she does have a dislocation to her right second toe I believe it is chronic in nature she states her toes always look like that she has no pain here unable to reduce it either she is to follow-up with PCP return if worsening she understands agrees to plan Medical Records I reviewed the patient's medical records. Lab Data Radiology Impressions Ankle X-Ray 12/01/23 11:19 Impression: Negative left ankle. Foot X-Ray 12/01/23 11:19 Impression: Negative left foot. Knee X-Ray 12/01/23 11:19 Impression: Medial joint compartment narrowing but no fractures are seen. Kellgren-Primitivo Classification: grade 1 (doubtful): doubtful joint space narrowing and possible osteophytic lipping Pelvis X-Ray 12/01/23 11:20 Impression: Negative for pelvic or hip fractures. All radiology interpretation(s) finalized by discharge Discharge Plan Discharge Patient Disposition: Home Clinical Impression: Fall, Contusion of foot, left Condition: Stable Prescriptions: No Action cholecalciferol (vitamin D3) 25 mcg (1,000 unit) capsule 25 mcg PO DAILY prenat.vits,eleno,[id number] Tablet 1 tab PO ONCE Boost Calorie Smart Liquid 1 each PO DAILY vit A and D3 in cod liver oil [cod liver oil] 1,250-135 unit capsule 1 cap PO DAILY levothyroxine 75 mcg tablet 75 mcg PO DAILY Qty: 90 3RF atorvastatin 10 mg tablet 10 mg PO DAILY Qty: 90 3RF Rx Instructions: Take 1 tablet by mouth once daily prednisone 5 mg/mL concentrate 25 mg PO BID Qty: 30 0RF Rx Instructions: 1 teaspoon twice daily for 3 days, then 1 teaspoon daily until gone (DME) bed side commode See Rx Instructions .Route .MEDSUPPLY Qty: 1 0RF Rx Instructions: As directed famotidine 20 mg tablet 20 mg PO BID ciprofloxacin-dexamethasone 0.3-0.1 % drops,suspension 4 drp otic (ear) BID Qty: 7.5 0RF Osmolite 1 [place]eno 0.04 gram-1.06 kcal/mL liquid See Rx Instructions PO .every 4 hours Qty: 74710 5RF Rx Instructions: 1 1/2 can per gastric tube 8am and noon, 1 can at 4pm and 8pm lactulose 10 gram/15 mL (15 mL) solution 20 g PO DAILY Qty: 1440 2RF mirtazapine 15 mg tablet See Rx Instructions .ROUTE .COMPLEX Qty: 90 2RF Dose Instruction: TAKE 1 TABLET(15 MG) BY MOUTH EVERY DAY Rx Instructions: TAKE 1 TABLET(15 MG) BY MOUTH EVERY DAY oxybutynin chloride 5 mg tablet 5 mg PO DAILY Qty: 90 2RF Rx Instructions: take in the morning for leaking bladder fluticasone propionate 50 mcg/actuation spray,suspension 2 spray INTRANASAL DAILY coenzyme Q10 30 mg Capsule 50 mg PO DAILY Discharge Orders: Discharge ED (Routine); Ordered 12/01/23 Ordered By: Petty Murrieta Referrals: Rebecca Huertas MD [Primary Care Provider] - 1-3 days Discharge Diet: Advance as tolerated Discharge Activity: Resume usual activity Patient Instructions: Foot Contusion (ED), Fall Prevention (ED) Coding Level of Care Code ED Service Line Bus Cleaner for Kenyatta Herman
--- NOTE | 2023-12-01 11:20 | XR_ITS ---
WS: [id number] Pelvis, AP view, 12/01/2023 Clinical Data: fall Comparison: Right hip, 04/30/2020 Findings: No fractures or dislocations are seen. 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 The SI joints an d pubic symphysis are intact. The soft tissues are not remarkable. There are surgical kathy overlying the superior pubic rami bilaterally. There is a gastrostomy tube over the stomach. 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 XR/XR pelvis 1-2V* [id number] Impression: Negative for pelvic or hip fractures.
[2023-12-01 11:24] VITALS: BP 139/71; PULSE 96; RESP 16; TEMP 36.6; O2SAT 99
[2023-12-01 11:27] VITALS: BP 139/71; PULSE 87; RESP 18; TEMP 36.9; O2SAT 96
[2023-12-01 12:18] VITALS: BP 134/100; PULSE 76; RESP 16; O2SAT 99
== END 2023-12-01 12:18 | disposition home or self-care (01) ==
PROVIDERS: Emergency Provider Emergency Medicine; PCP Family Medicine
DX: S90.32XA Contusion of left foot, initial encounter (principal); W01.0XXA Fall on same level from slipping, tripping and stumbling without subsequent striking against object, initial encounter
CPT/HCPCS: 72170; 73562; 73610; 73630; 99284

== ENCOUNTER 2024-01-18 16:42 | Emergency (ER) | payer MEDICARE, OTHER, SELFPAY ==
[2024-01-18 16:50] VITALS: BP 116/74; PULSE 89; RESP 18; TEMP 36.9; O2SAT 95
--- NOTE | 2024-01-18 17:05 | CTR_ITS ---
PROCEDURE INFORMATION: Exam: CT Head Without Contrast Exam date and time: 01/18/2024 5:35 PM Age: 78 years old Clinical indication: Injury or trauma; Fall; Blunt trauma (contusions or hematomas) TECHNIQUE: Imaging protocol: Computed tomography of the head without contrast. Radiation optimization: All CT scans at this facility use at least one of these dose optimization techniques: automated exposure control; mA and/or kV adjustment per patient size (includes targeted exams where dose is matched to clinical indication); or iterative reconstruction. COMPARISON: CT head wo con* [id number] 10/01/2022 11:08 AM RADIATION DOSE METRICS: Total DLP (mGy-cm): 1085 FINDINGS: Brain: No evidence of intra-axial or extra-axial hemorrhage. No mass effect or midline shift. Kay-white differentiation is maintained. Basilar cisterns are patent. Cerebral ventricles: No hydrocephalus. Paranasal sinuses: The visualized paranasal sinuses are well aerated. Mastoid air cells: The visualized mastoids and middle ears are clear. Bones: Unremarkable. No acute fracture. Soft tissues: No gross soft tissue abnormality. CT/CT head wo con* [id number] IMPRESSION: 1. No acute intracranial abnormality.
--- NOTE | 2024-01-18 17:05 | CTR_ITS ---
PROCEDURE INFORMATION: Exam: CT Cervical Spine Without Contrast Exam date and time: 01/18/2024 5:35 PM Age: 78 years old Clinical indication: Injury or trauma; Fall; Blunt trauma TECHNIQUE: Imaging protocol: Computed tomography of the cervical spine without contrast. Radiation optimization: All CT scans at this facility use at least one of these dose optimization techniques: automated exposure control; mA and/or kV adjustment per patient size (includes targeted exams where dose is matched to clinical indication); or iterative reconstruction. COMPARISON: MR cervical spin wo con* [id number] 11/21/2019 2:05 PM RADIATION DOSE METRICS: Total DLP (mGy-cm): 150 FINDINGS: Bones/joints: Minimal 1 mm degenerative anterolisthesis of C4 on C5 and C5 on C6. No evidence of acute fracture or subluxation of the cervical spine. The craniocervical junction including the atlantoaxial and atlantooccipital articulations are intact. C2-C3: Uncovertebral hypertrophy and facet arthrosis results in mild right-sided foraminal stenosis. No central stenosis. C3-C4: Uncovertebral hypertrophy and facet arthrosis results in very mild left-sided foraminal stenosis. Posterior disc protrusion results in mild central stenosis. C4-C5: Uncovertebral hypertrophy results in mild left-sided foraminal stenosis. Posterior disc protrusion without central stenosis. C5-C6: Uncovertebral hypertrophy results in mild right-sided foraminal stenosis. No central stenosis. C6-C7: No central or foraminal stenosis. C7-T1: No central or foraminal stenosis. Lungs: The visualized lung apices are clear. Soft tissues: No gross soft tissue abnormality. No significant prevertebral edema. No evidence of fluid collection or hematoma. CT/CT cervical spin wo con* [id number] IMPRESSION: 1. No evidence of fracture or subluxation of the cervical spine.
--- NOTE | 2024-01-18 17:06 | XRR_ITS ---
PROCEDURE INFORMATION: Exam: XR Left Ankle Exam date and time: 01/18/2024 5:41 PM Age: 78 years old Clinical indication: Injury or trauma; Fall; Other: Pain TECHNIQUE: Imaging protocol: Radiologic exam of the left ankle. Views: 3 or more views. COMPARISON: CR XR ankle LT min 3V* [id number] 12/01/2023 11:42 AM FINDINGS: Bones/joints: Nondisplaced fracture seen within the distal medial left tibia/medial malleolus. AP view demonstrates subtle cortical irregularity about the lateral margin of the distal left fibula or lateral malleolus, suggesting subtle nondisplaced fracture. Ankle joint appears maintained or intact. Bony demineralization. Soft tissues: Soft tissue swelling. XR/XR ankle LT min 3V* [id number] IMPRESSION: 1. Nondisplaced fracture distal medial tibia/medial malleolus. 2. Subtle cortical irregularity along the lateral margin of the distal left fibula/lateral malleolus on the AP projection suggest subtle nondisplaced fracture. 3. Soft tissue swelling.
--- NOTE | 2024-01-18 17:06 | XRR_ITS ---
PROCEDURE INFORMATION: Exam: XR Left Foot Exam date and time: 01/18/2024 5:41 PM Age: 78 years old Clinical indication: Injury or trauma; Fall; Other: Pain TECHNIQUE: Imaging protocol: Radiologic exam of the left foot. Views: 3 or more views. COMPARISON: CR XR foot LT min 3V* [id number] 12/01/2023 11:40 AM FINDINGS: Bones/joints: Bony demineralization and mild degenerative change, along with posterior calcaneal spur/enthesophyte. No fracture or dislocation of the left foot. Note is made of nondisplaced fracture of the medial malleolus. Soft tissues: Mild soft tissue swelling ankle/proximal foot. XR/XR foot LT min 3V* [id number] IMPRESSION: No fracture or dislocation of the left foot. Nondisplaced fracture noted within the medial malleolus at the ankle.
--- NOTE | 2024-01-18 17:07 | ED_ITS ---
HPI - Extremity Problem 2 General: Chief complaint: Extremity Injury, Lower Stated complaint: left foot pain, Time Seen by Provider: 01/18/24 16:57 History of Present Illness: 78-year-old female comes in today for in jury to the left foot. Patient had gotten up from a sitting position in order to go to the bathroom. Patient was long-term down the [place] when she does not know what happened. Patient remembers awakening shortly after the fall and had to crawl to her phone in order to get assistance. Patient's male significant other came over and helped her get up and get to the bathroom at bedside commode. Patient has bruising and swelling to the left foot. Patient at this time gets GI tube feedings to help with nutrition due to aphagia. 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 Review of Systems 2 General: Reports: 10 or more systems reviewed and unremarkable except in HPI and below PFSH ED 2 PFSH: Medical History Hypothalamic hypothyroidism Cataract Enrolled in chronic care management Hip pain Flu vaccine need Hip pain Opioid contract exists GERD (gastroesophageal reflux disease) Inclusion body myositis Myopathy Myelopathy Hypercholesteremia Pharyngoesophageal dysphagia Anxiety Surgical History H/O abdominal hysterectomy H/O bladder repair surgery History of cataract surgery History of total hysterectomy History of tonsillectomy Family History Other Cancer Diabetes Social History Smoking and tobacco/nicotine status: never used tobacco/nicotine Physical Exam 2 Const: COMMON NORMALS: alert HENMT: COMMON NORMALS: normocephalic HEAD & SCALP: normocephalic THROAT: posterior oropharynx normal Neck/C-Spine: COMMON NORMALS: full ROM Chest: COMMONS NORMALS: normal inspection of the chest and normal palpation of entire chest wall Resp: COMMON NORMALS: normal respiratory effort and clear to auscultation bilaterally AUSCULTATION: clear to auscultation bilaterally Cardio: COMMON NORMALS: regular rate and regular rhythm RATE: regular rate RHYTHM: regular rhythm GI: COMMON NORMALS: Soft to palpation and non-tender PALPATION: Yes Soft to palpation Back/Pelvis: COMMON NORMALS: thoracic and lumbar spine normal to inspection Extremity: COMMON NORMALS: normal to inspection Neuro: SENSORIUM/ORIENTATION: Yes alert Psych: COMMON NORMALS: cooperative Skin: COMMON NORMALS: turgor normal GENERAL SKIN EXAM: turgor normal Course 2 Vital Signs: Vital signs: Vital Signs Temperature 98.4 F 01/18/24 16:50 Pulse Rate 80 01/18/24 20:24 Respiratory Rate 16 01/18/24 20:24 Blood Pressure 129/78 01/18/24 20:24 Pulse Oximetry 96 01/18/24 20:24 Oxygen Delivery Me thod Room Air 01/18/24 18:38 MDM - Extremity (Nontraumatic) Medical Decision Making 78-year-old female was brought in today by family for concerns of fall and injury to the left ankle. Patient has a long chronic medical problems and has difficulty with ambulation. On exam we note swelling and bruising to the left lateral ankle. Pulses are intact. Patient has a PEG tube in place. Abdomen soft nontender. No rib pain is noted. No neck or back pain is noted on palpation. Pupils are equal and reactive. Patient has generalized weakness which makes it difficult for her to walk. Differential diagnosis includes electrolyte imbalance, fracture, sprain, ACS, intracranial bleeding. X-ray noted a fracture of the distal tibia along the medial malleolus that was nondisplaced. CT of the cervical spine noted no fracture. CT of the head noted no fracture or intracranial bleeding. CBC was unremarkable. CMP was unremarkable. Troponin initial reading was 88 2-hour repeat was 64 showing a delta decline. EKG showed no changes after 2 hours. Reviewed exam with patient recommended treatment follow-up with orthopedics for further evaluation and care of the fracture. Recommend follow-up with primary care for other instructions. Patient was given a walking boot for protection of the fracture, and a wheelchair to help with mobility as she should be avoiding weightbearing at this time until follow-up with specialist. Family and patient both reported understanding. Lab Data 01/18/24 17:24 01/18/24 17:24 Radiology Impressions Cervical Spine CT 01/18/24 17:05 IMPRESSION: 1. No evidence of fracture or subluxation of the cervical spine. Head CT 01/18/24 17:05 IMPRESSION: 1. No acute intracranial abnormality. Ankle X-Ray 01/18/24 17:06 IMPRESSION: 1. Nondisplaced fracture distal medial tibia/medial malleolus. 2. Subtle cortical irregularity along the lateral margin of the distal left fibula/lateral malleolus on the AP projection suggest subtle nondisplaced fracture. 3. Soft tissue swelling. Foot X-Ray 01/18/24 17:06 IMPRESSION: No fracture or dislocation of the left foot. Nondisplaced fracture noted within the medial malleolus at the ankle. Laboratory Results WBC 8.47 10^3/uL (3.29-11.43) 01/18/24 17:24 RBC 4.49 10^6/uL (3.85-5.65) 01/18/24 17:24 Hgb 12.80 g/dL (11.27-16.99) 01/18/24 17:24 Hct 39.8 % (36-47) 01/18/24 17:24 MCV 88.6 fl (85-98) 01/18/24 17:24 MCH 28.5 pg (27-33) 01/18/24 17:24 MCHC 32.2 g/dL (30-55) 01/18/24 17:24 RDW 13.6 % (12.1-15.1) 01/18/24 17:24 Plt Count 170 10^3/cmm (157-399) 01/18/24 17:24 MPV 11.5 fL (7.4-10.4) H 01/18/24 17: Neut % (Auto) 87.1 % 01/18/24 17:24 Lymph % (Auto) 5.1 % 01/18/24 17:24 [place] % (Auto) 6.4 % 01/18/24 17:24 Eos % (Auto) 0.7 % 01/18/24 17: Baso % (Auto) 0.2 % 01/18/24 17: Neut # (Auto) 7.38 10^3/uL (1.8-7.7) 01/18/24 17:24 Lymph # (Auto) 0.4 10^3/uL (0.8-4.8) L 01/18/24 17:24 [place] # (Auto) 0.5 10^3/uL (0.2-0.9) 01/18/24 17:24 Eos # (Auto) 0.1 10^3/uL (0.0-0.8) 01/18/24 17:24 Baso # (Auto) 0.0 10^3/uL (0.0-0.1) 01/18/24 17:24 Nucleated RBC % (auto) 0 % 01/18/24 17:24 Nucleated RBCs # 0.0 /100WBC 01/18/24 17:24 Sodium 140 mmol/L (136-145) 01/18/24 17:24 Potassium 4.5 mmol/L (3.5-5.1) 01/18/24 17:24 Chloride 102 mmol/L (98-107) 01/18/24 17:24 Carbon Dioxide 27 mmol/L (22-29) 01/18/24 17:24 Anion Gap 15.5 (5-19) 01/18/24 17:24 BUN 34 mg/dL (8-23) H 01/18/24 17:24 Creatinine 0.4 mg/dL (0.5-0.9) L 01/18/24 17:24 GFR Calculation Not Reportable 01/18/24 17:24 Glucose 162 mg/dL (65-115) H 01/18/24 17:24 Calculated Osmolality 301 mOsm/kg (285-295) H 01/18/24 17:24 Calcium 9.2 mg/dL (8.5-10.5) 01/18/24 17:24 Total Bilirubin 0.4 mg/dL (0.15-1.2) 01/18/24 17:24 AST 24 U/L (0-32) 01/18/24 17:24 ALT 23 U/L (0-33) 01/18/24 17:24 Alkaline Phosphatase 112 U/L (35-105) H 01/18/24 17:24 Troponin T Baseline 80 ng/L (0-10) H 01/18/24 17:24 Troponin T 120 Minute 64.27 ng/L (0-10) H 01/18/24 19:26 Delta Troponin T -15.73 ABS# (0-10) L 01/18/24 19:26 Total Protein 7.2 g/dL (6.6-8.7) 01/18/24 17:24 Albumin 4.3 g/dL (3.5-5.2) 01/18/24 17:24 Globulin 2.9 g/dL (1.3-4.6) 01/18/24 17:24 Urine Color Yellow (Yellow) 01/18/24 18:00 Urine Appearance Clear (CLEAR) 01/18/24 18:00 Urine pH 8 (5-7) H 01/18/24 18:00 Ur Specific [place] 1.010 (1.005-1.030) 01/18/24 18:00 Urine Protein Neg (Negative) 01/18/24 18:00 Urine Glucose (UA) Norm (Normal) 01/18/24 18:00 Urine Ketones Negative (Negative) 01/18/24 18:00 Urine Blood Neg (Negative) 01/18/24 18:00 Urine Nitrate Negative (Negative) 01/18/24 18:00 Urine Bilirubin Neg (Negative) 01/18/24 18:00 Urine Urobilinogen Norm mg/dL (Negative) 01/18/24 18:00 Ur Leukocyte Esterase Negative (Negative) 01/18/24 18:00 All radiology interpretation(s) finalized by discharge EKG Data EKG 1: I personally reviewed and interpreted this EKG as follows: EKG interpretation date: 01/18/24 EKG interpretation time: 17:20 Prior EKG tracings: not available for review Interpretation: EKG shows a sinus rhythm with a regular rate at [address] elevation or ectopy is noted. No prior exam was available for comparison. Mild artifact was present on the EKG. Computer generated interpretation: Sinus rhythm with sinus arrhythmia, normal EKG, unconfirmed report. EKG 2: I personally reviewed and interpreted this EKG as follows: EKG interpretation date: 01/18/24 EKG interpretation time: 19:30 Prior EKG tracings: available for review Interpretation: EKG shows a sinus rhythm with sinus arrhythmia, regular rate at [address] elevation or ectopy is noted. No changes was noted from prior exam. From 2 hours ago. Computer generated interpretation: Sinus rhythm with sinus arrhythmia, normal EKG, unconfirmed report. Discharge Plan Discharge Patient Disposition: Home Clinical Impression: Nondisplaced fracture of distal end of left tibia Fall Qualifiers: Encounter type: initial encounter Qualified Code(s): W19.XXXA - Unspecified fall, initial encounter Condition: Stable Prescriptions: New acetaminophen 650 mg/20.3 mL solution 650 mg PO Q6H PRN (Reason: fever or pain) Qty: 1015 0RF No Action cholecalciferol (vitamin D3) 25 mcg (1,000 unit) capsule 25 mcg PO DAILY prenat.vits,eleno,[id number] Tablet 1 tab PO ONCE Boost Calorie Smart Liquid 1 each PO DAILY vit A and D3 in cod liver oil [cod liver oil] 1,250-135 unit capsule 1 cap PO DAILY levothyroxine 75 mcg tablet 75 mcg PO DAILY Qty: 90 3RF atorvastatin 10 mg tablet 10 mg PO DAILY Qty: 90 3RF Rx Instructions: Take 1 tablet by mouth once daily prednisone 5 mg/mL concentrate 25 mg PO BID Qty: 30 0RF Rx Instructions: 1 teaspoon twice daily for 3 days, then 1 teaspoon daily until gone (DME) bed side commode See Rx Instructions .Route .MEDSUPPLY Qty: 1 0RF Rx Instructions: As directed famotidine 20 mg tablet 20 mg PO BID ciprofloxacin-dexamethasone 0.3-0.1 % drops,suspension 4 drp otic (ear) BID Qty: 7.5 0RF Osmolite 1 [place]eno 0.04 gram-1.06 kcal/mL liquid See Rx Instructions PO .every 4 hours Qty: 17305 5RF Rx Instructions: 1 1/2 can per gastric tube 8am and noon, 1 can at 4pm and 8pm lactulose 10 gram/15 mL (15 mL) solution 20 g PO DAILY Qty: 1440 2RF mirtazapine 15 mg tablet See Rx Instructions .ROUTE .COMPLEX Qty: 90 2RF Dose Instruction: TAKE 1 TABLET(15 MG) BY MOUTH EVERY DAY Rx Instructions: TAKE 1 TABLET(15 MG) BY MOUTH EVERY DAY oxybutynin chloride 5 mg tablet 5 mg PO DAILY Qty: 90 2RF Rx Instructions: take in the morning for leaking bladder fluticasone propionate 50 mcg/actuation spray,suspension 2 spray INTRANASAL DAILY coenzyme Q10 30 mg Capsule 50 mg PO DAILY Discharge Orders: Discharge ED (Routine); Ordered 01/18/24 Ordered By: Caleb Saab Other Ambulatory Orders: DME: Miscellaneous (Order) Location: None Selected Ordered By: Caleb Saab DME: Miscellaneous (Order) Location: None Selected Ordered By: Caleb Saab Referrals: Rebecca Huertas MD [Primary Care Provider] - Discharge Diet: Usual diet Discharge Activity: Increase activity as tolerated Patient Instructions: Ankle Fracture (ED) Activity Restrictions/Additional Instructions: Avoid as much as possible bearing weight to the affected extremity. Keep boot in place. Use wheelchair for getting around may bear weight to transfer only. Case management will contact you regarding follow-up with orthopedist. Return to ED for new concerns. Coding Level of Care Code ED Body Make Up Artist for Kenyatta Herman
--- NOTE | 2024-01-18 17:16 | ECG_ITS ---
[facility] Test Date: 2024-01-18 Pat Name: Iris Pickering Department: Room: Gender: Female Director Of Software Development: : 1945 Requested By: Caleb An Order Number: [id number] Kelli MD: Tyler Eisenberg M.D. Measurements Intervals [place] Rate: 92 P: 82 TN: 147 QRS: 73 QRSD: 82 T: 71 QT: 354 QTc: 438 Interpretive Statements SINUS RHYTHM WITH SINUS ARRHYTHMIA No previous ECG available for comparison Electronically Signed On 01-19-2024 0:08:59 CDT by Tyler Eisenberg M.D. [id number]
[2024-01-18 17:36] LABS: Basophils % 0.2 %; Eosinophils # 0.1 10^3/uL (0.0-0.8); Eosinophils % 0.7 %; Hematocrit 39.8 % (36-47); Lymphocytes # 0.4 10^3/uL (0.8-4.8); Lymphocytes % 5.1 %; Mean Corpuscular HGB Conc 32.2 g/dL (30-55); Mean Corpuscular Hemoglobin 28.5 pg (27-33); Mean Corpuscular Volume 88.6 fl (85-98); Mean Platelet Volume 11.5 fL (7.4-10.4); Monocytes # 0.5 10^3/uL (0.2-0.9); Monocytes % 6.4 %; Neutrophils # 7.38 10^3/uL (1.8-7.7); Neutrophils % 87.1 %; Nucleated Red Blood Cells % 0 %; Platelet Count 170 10^3/cmm (157-399); Red Blood Count 4.49 10^6/uL (3.85-5.65); Red Cell Distribution Width 13.6 % (12.1-15.1); White Blood Count 8.47 10^3/uL (3.29-11.43)
[2024-01-18 18:00] LABS: Troponin(5th) Baseline 80 ng/L (0-10)
[2024-01-18 18:03] LABS: Alanine Aminotransferase 23 U/L (0-33); Albumin Level 4.3 g/dL (3.5-5.2); Alkaline Phosphatase 112 U/L (35-105); Anion Gap 15.5 (5-19); Aspartate Amino Transferase 24 U/L (0-32); Blood Urea Nitrogen 34 mg/dL (8-23); Calcium 9.2 mg/dL (8.5-10.5); Carbon Dioxide 27 mmol/L (22-29); Chloride 102 mmol/L (98-107); Creatinine Clr Calc Pharmacy 45.2848; Globulin 2.9 g/dL (1.3-4.6); Glucose 162 mg/dL (65-115); Osmolality Calculated 301 mOsm/kg (285-295); Potassium 4.5 mmol/L (3.5-5.1); Sodium 140 mmol/L (136-145); Total Bilirubin 0.4 mg/dL (0.15-1.2); Total Protein 7.2 g/dL (6.6-8.7)
[2024-01-18 18:38] VITALS: BP 122/80; PULSE 88; O2SAT 98
[2024-01-18 18:45] LABS: Add Urine Microscopic? NO; Charge for UA Resulting for Rev
[2024-01-18 19:06] LABS: Blood Urine Neg (Negative); Glucose Urine UA Norm (Normal); Ketones Urine Negative (Negative); Protein Urine Neg (Negative); Urine Appearance Clear (CLEAR); Urine Color Yellow (Yellow); pH Urine 8 (5-7)
[2024-01-18 19:07] LABS: Bilirubin Urine Neg (Negative); Leukocyte Esterase Urine Negative (Negative); Nitrate Urine Negative (Negative); Urobilinogen Urine Norm (Negative)
--- NOTE | 2024-01-18 19:22 | ECG_ITS ---
[facility] Test Date: 2024-01-18 Pat Name: Iris Pickering Department: Room: Gender: Female Lidder: : 1945 Requested By: Caleb An Order Number: [id number] Kelli MD: Tyler Eisenberg M.D. Measurements Intervals [place] Rate: 92 P: 97 OK: 152 QRS: 72 QRSD: 82 T: 73 QT: 345 QTc: 427 Interpretive Statements SINUS RHYTHM WITH SINUS ARRHYTHMIA Compared to ECG 01/18/2024 17:16:40 No significant changes Electronically Signed On 01-19-2024 0:19:30 CDT by Tyler Eisenberg M.D. [id number]
[2024-01-18 19:54] LABS: Troponin 5 2HR 64.27 ng/L (0-10)
[2024-01-18 19:58] LABS: Troponin 5 2HR Delta -15.73 ABS# (0-10)
[2024-01-18 20:24] VITALS: BP 129/78; PULSE 80; RESP 16; O2SAT 96
--- NOTE | 2024-01-19 08:18 | DCPLANNER ---
messaged podiatry for er f/u
== END 2024-01-18 20:24 | disposition home or self-care (01) ==
PROVIDERS: Emergency Provider Nurse Practitioner Family; PCP Family Medicine
DX: S82.302A Unspecified fracture of lower end of left tibia, initial encounter for closed fracture (principal); I49.8 Other specified cardiac arrhythmias; W19.XXXA Unspecified fall, initial encounter
CPT/HCPCS: 36415; 70450; 72125; 73610; 73630; 80053; 81003; 84484; 85025; 93005; 99285

== ENCOUNTER → 2024-01-20 11:31 | Outpatient (BNVA) | payer MEDICARE, OTHER, SELFPAY | PROVIDERS: PCP Family Medicine; Visit Provider Podiatrist Foot & Ankle Surgery | DX: S82.56XA Nondisplaced fracture of medial malleolus of unspecified tibia, initial encounter for closed fracture; W19.XXXA Unspecified fall, initial encounter | CPT/HCPCS: 73610; 99203 ==

== ENCOUNTER → 2024-02-10 11:22 | Outpatient (BNVA) | payer MEDICARE, OTHER, SELFPAY | PROVIDERS: PCP Family Medicine; Visit Provider Podiatrist Foot & Ankle Surgery | DX: S82.52XA Displaced fracture of medial malleolus of left tibia, initial encounter for closed fracture; W19.XXXA Unspecified fall, initial encounter | CPT/HCPCS: 73610; 99213 ==

== ENCOUNTER → 2024-03-02 10:57 | Outpatient (BNVA) | payer MEDICARE, OTHER, SELFPAY | PROVIDERS: PCP Family Medicine; Visit Provider Podiatrist Foot & Ankle Surgery | DX: M25.572 Pain in left ankle and joints of left foot (principal); S82.52XA Displaced fracture of medial malleolus of left tibia, initial encounter for closed fracture; X58.XXXA Exposure to other specified factors, initial encounter | CPT/HCPCS: 73610; 99213 ==

== ENCOUNTER → 2024-03-13 09:58 | Outpatient (BNVA) | payer MEDICARE, OTHER, SELFPAY | PROVIDERS: Visit Provider Podiatrist Foot & Ankle Surgery | DX: S82.52XA Displaced fracture of medial malleolus of left tibia, initial encounter for closed fracture; X58.XXXA Exposure to other specified factors, initial encounter; Z46.89 Encounter for fitting and adjustment of other specified devices; S82.56 Nondisplaced fracture of medial malleolus of unspecified tibia; X58.XXXD Exposure to other specified factors, subsequent encounter | CPT/HCPCS: 73610; 99213 ==

== ENCOUNTER 2024-03-13 14:04 | Outpatient (CLI) | payer MEDICARE, OTHER, SELFPAY | END 2024-03-13 14:05 | disposition home or self-care (01) | LOC: SPT 14:04 | PROVIDERS: Visit Provider Podiatrist Foot & Ankle Surgery | DX: Z46.89 Encounter for fitting and adjustment of other specified devices (principal); S82.56 Nondisplaced fracture of medial malleolus of unspecified tibia; X58.XXXD Exposure to other specified factors, subsequent encounter | CPT/HCPCS: 97760; L1902 ==

== ENCOUNTER 2024-03-22 10:05 | Outpatient (RCR) | payer MEDICARE, OTHER, SELFPAY | END 2024-03-24 18:00 | disposition home or self-care (01) | LOC: SPT 10:05 | PROVIDERS: Visit Provider Podiatrist Foot & Ankle Surgery | DX: S82.92XD Unspecified fracture of left lower leg, subsequent encounter for closed fracture with routine healing (principal); X58.XXXD Exposure to other specified factors, subsequent encounter | CPT/HCPCS: 97161 ==

== ENCOUNTER 2024-03-25 06:00 | Outpatient (RCR) | payer MEDICARE, OTHER, SELFPAY | END 2024-04-23 23:59 | disposition home or self-care (01) | LOC: SPT 06:00 | PROVIDERS: PCP Family Medicine; Visit Provider Podiatrist Foot & Ankle Surgery | DX: S82.92XD Unspecified fracture of left lower leg, subsequent encounter for closed fracture with routine healing (principal); X58.XXXD Exposure to other specified factors, subsequent encounter | CPT/HCPCS: 97110; 97116; 97530 ==

== ENCOUNTER → 2024-04-12 11:00 | Outpatient (BNVA) | payer MEDICARE, OTHER, SELFPAY | PROVIDERS: PCP Family Medicine; Visit Provider Podiatrist Foot & Ankle Surgery | DX: S82.52XD Displaced fracture of medial malleolus of left tibia, subsequent encounter for closed fracture with routine healing; X58.XXXD Exposure to other specified factors, subsequent encounter | CPT/HCPCS: 99213 ==

== ENCOUNTER 2024-04-24 06:00 | Outpatient (RCR) | payer MEDICARE, OTHER, SELFPAY | END 2024-04-30 23:59 | disposition home or self-care (01) | LOC: SPT 06:00 | PROVIDERS: PCP Family Medicine; Visit Provider Podiatrist Foot & Ankle Surgery | DX: S82.92XD Unspecified fracture of left lower leg, subsequent encounter for closed fracture with routine healing (principal); X58.XXXD Exposure to other specified factors, subsequent encounter | CPT/HCPCS: 97110; 97116 ==

== ENCOUNTER → 2024-04-30 11:18 | Outpatient (BNVA) | payer MEDICARE, OTHER, SELFPAY | PROVIDERS: PCP Family Medicine; Visit Provider Family Medicine | DX: E78.00 Pure hypercholesterolemia, unspecified (principal); G95.9 Disease of spinal cord, unspecified; R73.9 Hyperglycemia, unspecified | CPT/HCPCS: 80053; 80061; 85025 ==

== ENCOUNTER → 2024-05-01 07:04 | Outpatient (BNVA) | payer MEDICARE, OTHER, SELFPAY | PROVIDERS: PCP Family Medicine; Visit Provider Family Medicine | DX: R73.9 Hyperglycemia, unspecified (principal) | CPT/HCPCS: 83036 ==

== ENCOUNTER → 2024-06-12 10:53 | Outpatient (BNVA) | payer MEDICARE, OTHER, SELFPAY | PROVIDERS: PCP Family Medicine; Visit Provider Podiatrist Foot & Ankle Surgery | DX: M79.671 Pain in right foot | CPT/HCPCS: 73630; 99213 ==

== ENCOUNTER → 2024-12-05 11:04 | Outpatient (BNVA) | payer MEDICARE, OTHER, SELFPAY | PROVIDERS: PCP Family Medicine; Visit Provider Family Medicine | DX: R63.5 Abnormal weight gain (principal) | CPT/HCPCS: 80053; 85025 ==

== ENCOUNTER → 2025-04-24 14:41 | Outpatient (BNVA) | payer MEDICARE, OTHER, SELFPAY | PROVIDERS: PCP Family Medicine; Visit Provider Family Medicine | DX: R73.9 Hyperglycemia, unspecified (principal) | CPT/HCPCS: 82962 ==